=== PATIENT | male | born 1975 | race Caucasian/White ===

== ENCOUNTER 2018-08-24 11:38 | Outpatient (CLI) | payer SELFPAY ==
[2018-08-24 12:37] LABS: Hemoglobin A1C 6.2 % (4.5-6.2)
[2018-08-24 12:38] LABS: CREATININE 1.16 mg/dL (0.70-1.30); Potassium 4.2 mmol/L (3.5-5.1)
== END 2018-08-24 11:58 ==
PROVIDERS: PCP Family Medicine; Visit Provider Family Medicine
DX: E11.9 Type 2 diabetes mellitus without complications (principal)
CPT/HCPCS: 36415; 82565; 83036; 84132

== ENCOUNTER 2019-09-13 03:50 | Outpatient (CLI) | payer SELFPAY ==
[2019-09-13 07:52] LABS: Hemoglobin A1C 6.2 % (3.8-5.6)
[2019-09-13 08:13] LABS: CREATININE 1.23 mg/dL (0.70-1.30); Calculated LDL 118 mg/dL (<100); Cholesterol 175 mg/dL (<200); HDL Cholesterol 44 mg/dL (40-60); Potassium 4.3 mmol/L (3.5-5.1); Triglyceride 68 mg/dL (<150)
== END 2019-09-13 04:10 ==
PROVIDERS: PCP Family Medicine; Visit Provider Family Medicine
DX: E11.65 Type 2 diabetes mellitus with hyperglycemia (principal); I10 Essential (primary) hypertension; E78.5 Hyperlipidemia, unspecified
CPT/HCPCS: 36415; 80061; 82565; 83036; 84132

== ENCOUNTER 2020-04-10 11:38 | Outpatient (REF) | payer SELFPAY ==
--- NOTE | 2020-04-10 11:00 | SKI_PTH ---
PATIENT: Alfred Covarrubias LOC: [facility] U#:[id number] AGE/SX: 45/M ROOM: RE04/10/[address]: Tyrone Baker DO : 1975 BED: DIS: 04/10/2020 SPEC #: [id number] RECD: 04/10/20 12:59 STATUS: FRANCESCO REQ #: [id number] TAMIKA: 04/10/20 11:[address]: Tyrone Baker DEPT: Surgical Specimen RECD BY: Claudia Hawkins ENTERED: 04/10/20 13:00 SP TYPE: SKI OTHR DR: Thor Serrano MD Tissues: 1 - SKIN BIOPSY(SHAVE/PUNCH) Procedures: SKIN LEVEL 4 Comments: [id number]
== END 2020-04-10 11:58 ==
LOC: LBN 11:38
PROVIDERS: PCP Family Medicine; Visit Provider Emergency Medicine
DX: L30.8 Other specified dermatitis (principal); R23.4 Changes in skin texture; D72.10 Eosinophilia, unspecified
CPT/HCPCS: 88305

== ENCOUNTER 2020-09-17 02:19 | Outpatient (CLI) | payer SELFPAY ==
[2020-09-17 09:13] LABS: Hemoglobin A1C 6.8 % (<5.7)
[2020-09-17 10:07] LABS: CREATININE 1.2 mg/dL (0.70-1.30); Calculated LDL 110 mg/dL (<100); Cholesterol 181 mg/dL (<200); HDL Cholesterol 46 mg/dL (40-60); Triglyceride 126 mg/dL (<150)
== END 2020-09-17 02:20 | disposition home or self-care (01) ==
LOC: LBO 02:19
PROVIDERS: PCP Family Medicine; Visit Provider Family Medicine
DX: I10 Essential (primary) hypertension (principal); E78.5 Hyperlipidemia, unspecified; R73.9 Hyperglycemia, unspecified
CPT/HCPCS: 36415; 80061; 82565; 83036; 84132

== ENCOUNTER 2021-04-11 14:13 | Outpatient (REF) | payer SELFPAY ==
[2021-04-13 16:33] LABS: COVID-19 RT-PCR UVMMC Result Positive (Negative)
== END 2021-04-11 14:14 | disposition home or self-care (01) ==
LOC: LBN 14:13
PROVIDERS: PCP Family Medicine; Visit Provider Nurse Practitioner Family
DX: Z20.822 Contact with and (suspected) exposure to COVID-19 (principal); R05.8 Other specified cough
CPT/HCPCS: U0003

== ENCOUNTER 2021-08-13 03:05 | Outpatient (CLI) | payer SELFPAY ==
[2021-08-13 14:06] LABS: Hemoglobin A1C 7.6 % (<5.7)
[2021-08-13 15:09] LABS: CREATININE 1.2 mg/dL (0.70-1.30)
[2021-08-14 15:06] LABS: Calculated LDL 88 mg/dL (<100); Cholesterol 172 mg/dL (<200); HDL Cholesterol 40 mg/dL (40-60); Triglyceride 223 mg/dL (<150)
[2021-08-15 06:57] LABS: Potassium 4.6 mmol/L (3.5-5.1)
== END 2021-08-13 03:06 | disposition home or self-care (01) ==
LOC: LBO 03:06
PROVIDERS: PCP Family Medicine; Visit Provider Family Medicine
DX: E78.5 Hyperlipidemia, unspecified (principal); I10 Essential (primary) hypertension; R73.9 Hyperglycemia, unspecified
CPT/HCPCS: 36415; 80061; 82565; 83036; 84132

== ENCOUNTER → 2023-01-07 01:10 | Outpatient (CLI) | payer SELFPAY ==
--- NOTE | 2023-01-07 07:00 | DI.RAD_ITS ---
Exam(s) XR LUMBAR SPINE COMPLETE EXAM: XR LUMBAR SPINE COMPLETE CLINICAL HISTORY: INCREASED BACK PAIN,M54.9. TECHNIQUE: 2D digital imaging was performed. COMPARISON: No exams were available for comparison FINDINGS: Five views. No evidence of fracture or listhesis. No pars defects. Disc spaces exhibit normal height. Bridging osteophytes are noted on the right side at L1-2 level. Asymmetry in the size of the 12th ribs noted . No osseous lesions. Facet joints appear relatively unremarkable as do the sacroiliac joints. The re is no scoliosis. No osseous lesions. IMPRESSION: Mild findings as described above. No disc space narrowing evident. No scoliosis. No obvious facet arthropathy. DATA REPOSITORY: RADIATION DOSE DELIVERED:
--- NOTE | 2023-01-07 07:00 | DI.RAD_ITS ---
Exam(s) XR THORACIC SPINE COMPLETE EXAM: XR THORACIC SPINE COMPLETE CLINICAL HISTORY: increased pain. TECHNIQUE: 2D digital imaging was performed. COMPARISON: No exams were available for comparison FINDINGS: 3 views There is no evidence of compression fracture nor listhesis. Multilevel osteophytes are noted in the mid-lower thoracic spine. No obvious osseous lesions. No abnormal widening the paraspinal lines. N o scoliosis. IMPRESSION: No fractures nor listhesis. DATA REPOSITORY: RADIATION DOSE DELIVERED:
== END ==
PROVIDERS: PCP Family Medicine; Visit Provider Nurse Practitioner Family
DX: M54.9 Dorsalgia, unspecified (principal)
CPT/HCPCS: 72072; 72110

== ENCOUNTER 2023-06-30 09:40 | Outpatient (CLI) | payer SELFPAY ==
[2023-06-30 12:23] LABS: HCT 46.3 % (40.0-50.0); HGB 16.2 g/dL (13.5-17.5); MCH 28.4 pg (27.0-33.0); MCV 81 fL (80-95); MPV 10.3 fL (8.0-11.0); Platelet Count 337 10^3/uL (130-400); RDW 12.7 % (11.8-14.1); WBC 9.67 10^3/uL (4.4-10.8)
[2023-06-30 12:38] LABS: ALT 49 U/L (16-63); AST 23 U/L (15-37); Alkaline Phosphatase 106 U/L (46-116); Anion Gap 15.9 mmol/L (3-11); BUN 13 mg/dL (7-18); Bilirubin, Total 0.5 mg/dL (0.2-1.0); CO2 23.1 mmol/L (21.0-32.0); CREATININE 1.3 mg/dL (0.70-1.30); Calcium 9.9 mg/dL (8.5-10.1); Calculated LDL 122 mg/dL (<100); Chloride 101 mmol/L (98-107); Cholesterol 193 mg/dL (<200); Estimated GFR 67.34 (mL/min/1.73m2); Glucose 224 mg/dL (74-106); HDL Cholesterol 49 mg/dL (40-60); Potassium 3.9 mmol/L (3.5-5.1); Sodium 140 mmol/L (136-145); Total Protein 8.4 g/dL (6.4-8.2); Triglyceride 110 mg/dL (<150)
== END 2023-06-30 09:41 | disposition home or self-care (01) ==
LOC: LOS 09:40
PROVIDERS: PCP Family Medicine; Referring Provider Family Medicine; Visit Provider Family Medicine
DX: R53.83 Other fatigue (principal); E78.5 Hyperlipidemia, unspecified; E11.51 Type 2 diabetes mellitus with diabetic peripheral angiopathy without gangrene; R10.9 Unspecified abdominal pain
CPT/HCPCS: 36415; 80053; 80061; 85027; 83036

== ENCOUNTER 2023-06-30 15:48 | Outpatient (REF) | payer SELFPAY ==
[2023-06-30 13:45] LABS: COMMENT (LAB VIEW ONLY) 196.76 mg/dL; Microalb ug/mg Crea 409.9 ug/mg Cr
== END 2023-06-30 15:49 | disposition home or self-care (01) ==
LOC: LBN 15:48
PROVIDERS: PCP Family Medicine; Referring Provider Family Medicine; Visit Provider Family Medicine
DX: E11.9 Type 2 diabetes mellitus without complications (principal)
CPT/HCPCS: 82043; 82570

== ENCOUNTER 2024-07-04 09:04 | Outpatient (CLI) | payer OTHER, SELFPAY ==
[2024-07-04 12:51] LABS: ALT 69 U/L (16-63); AST 36 U/L (15-37); CREATININE 1.1 mg/dL (0.70-1.30); Estimated GFR 81.78 (mL/min/1.73m2); Potassium 4.1 mmol/L (3.5-5.1)
[2024-07-04 18:43] LABS: PSA, Screening 0.9 ng/mL (<=3.5)
== END 2024-07-04 09:05 | disposition home or self-care (01) ==
LOC: LOS 09:05
PROVIDERS: PCP Family Medicine; Visit Provider Family Medicine
DX: I10 Essential (primary) hypertension (principal); Z12.5 Encounter for screening for malignant neoplasm of prostate; E78.5 Hyperlipidemia, unspecified; E11.9 Type 2 diabetes mellitus without complications
CPT/HCPCS: 36415; 84153; 82565; 84132; 84450; 84460

== ENCOUNTER 2024-07-04 15:54 | Outpatient (REF) | payer OTHER, SELFPAY ==
[2024-07-04 17:10] LABS: COMMENT (LAB VIEW ONLY) 181.47 mg/dL
[2024-07-04 17:11] LABS: Microalb ug/mg Crea 204.4 ug/mg Cr
== END 2024-07-04 15:55 | disposition home or self-care (01) ==
LOC: LBN 15:54
PROVIDERS: PCP Family Medicine; Visit Provider Family Medicine
DX: E11.9 Type 2 diabetes mellitus without complications (principal); Z23 Encounter for immunization; Z12.5 Encounter for screening for malignant neoplasm of prostate; I10 Essential (primary) hypertension; E78.5 Hyperlipidemia, unspecified
CPT/HCPCS: 82043; 82570